=== PATIENT | female | born 1970 | race Caucasian/White ===

== ENCOUNTER 2018-10-20 16:30 | Emergency (ER) | payer SELFPAY ==
--- NOTE | 2018-10-20 16:48 | PDOC ---
Rapid Medical Evaluation Chief Complaint: Blood Transfusion Time Seen by Provider: 10/20/18 16:43 Medical Evaluation: Allergies Allergy/AdvReac Type Severity Reaction Status Date / Time No Known Allergies Allergy Verified 10/20/18 16:42 10/20/18 16:46 The patient presents with a chief complaint of: dizzy, weak and sob w/ exertion , hx anemia due to heavy menstruation, went to pcp and was told her hgb was low and to go to the ED I have performed a brief in-person evaluation of this patient Pertinent physical exam findings: ambulatory, in no respiratory distress, vss I have ordered the following: labs, iv The patient will proceed to the ED for further evaluation. Discharge Disposition - Diagnosis Anemia - Discharge Dispostion Disposition: HOME Condition at time of disposition: Good - Referrals Referrals: Ramila Escudero MD [Primary Care Provider] - - Patient Instructions Printed Discharge Instructions: Anemia Additional Instructions: Please return if you have any new, worsening or concerning symptoms, especially fever, shortness of breath, and increased bleeding. Please follow up with your primary care doctor regarding your vaginal bleeding. - Post Discharge Activity
[2018-10-20 16:49] VITALS: BMI 27.6
[2018-10-20 17:10] LABS: BASO % 0.5 % (0-2.0); EOS % 1.9 % (0-4.5); HEMATOCRIT 21.1 % (32.4-45.2); LYMPH % 27.4 % (8-40); MCH 28.8 pg (25.7-33.7); MCHC 32.7 g/dl (32.0-36.0); MEAN CELL VOLUME 87.9 fl (80-96); MEAN PLT VOLUME 7.4 fl (7.5-11.1); MONO % 6.5 % (3.8-10.2); NEUT % 63.7 % (42.8-82.8); PLATELET COUNT 371 K/MM3 (134-434); RBC 2.41 M/mm3 (3.60-5.2); RDW 15.3 % (11.6-15.6); WHITE BLOOD COUNT 8.3 K/mm3 (4.0-10.0)
[2018-10-20 17:14] LABS: HEMOGLOBIN 6.9 GM/dL (10.7-15.3)
[2018-10-20 17:14] LABS: URINE BILIRUBIN NEGATIVE (<2.0 mg/dL); URINE GLUCOSE (UA) NEGATIVE (NEGATIVE); URINE KETONE NEGATIVE (NEGATIVE); URINE LEUK ESTERASE NEGATIVE (NEGATIVE); URINE NITRITE NEGATIVE (NEGATIVE); URINE PROTEIN NEGATIVE (NEGATIVE); URINE UROBILINOGEN NEGATIVE mg/dL (0.2-1.0)
[2018-10-20 17:15] LABS: URINE APPEARANCE CLEAR; URINE COLOR YELLOW
[2018-10-20 17:16] LABS: HCG,QUALITATIVE URINE Negative
[2018-10-20 17:55] LABS: ALBUMIN 3.4 g/dl (3.4-5.0); ALK PHOS 70 U/L (45-117); ANION GAP 6 MMOL/L (8-16); BILIRUBIN,TOTAL < 0.1 mg/dL (0.2-1); BLOOD UREA NITROGEN 19 mg/dL (7-18); CALCIUM 7.9 mg/dL (8.5-10.1); CHLORIDE 106 mmol/L (98-107); CO2 25 mmol/L (21-32); CREATININE 0.7 mg/dL (0.55-1.3); GLUCOSE,RANDOM 99 mg/dL (74-106); POTASSIUM 3.9 mmol/L (3.5-5.1); SGOT/AST 5 U/L (15-37); SGPT/ALT 34 U/L (13-61); SODIUM 136 mmol/L (136-145); TOT PROT 8.2 g/dl (6.4-8.2)
--- NOTE | 2018-10-20 18:25 | PDOC ---
Attending Attestation - [facility] HPI: 10/20/18 19:11 The patient is a 48 year old female with a PMH of anemia who presents to the ER with weakness, shortness of breath, mild chest pain, and mild suprpubic pain over the past week. The patient states she went to her primary care doctor to be evaluated for these symptoms and was told her the blood count was low. Patient was told to come to the ER for a possible transfusion. Patient also recently went to [facility] and was given meclizine and furosemide for dizziness and lightheadedness. Patient reports her last two menstrual cycles were heavy, which is abnormal for her. Patient states she has been using multiple pads a day and her cycle stopped two days ago. Patient denies any vaginal discharge, nausea, vomiting, fever, chills, diarrhea or constipation. Allergies: NKA Past surgical history: None reported. Social history: No reported alcohol, drug or cigarette use. - Physicial Exam PE: 10/20/18 19:11 ADULT PHYSICAL EXAM Constitutional: (+) Pale appearing. Awake, alert, oriented. No acute distress. Head: Normocephalic. Atraumatic Eyes: PERRL. EOMI. (+) Pale conjunctiva. ENT: Mucous membranes are moist and intact. Posterior pharynx without exudates or erythema. Uvula midline. Neck: Supple. Full ROM. No lymphadenopathy. Cardiovascular: Regular rate. Regular rhythm. S1, S2 regular. Distal pulses are 2+ and symmetric. Pulmonary/Chest: No evidence of respiratory distress. Clear to auscultation bilaterally No wheezing, rales or rhonchi. Abdominal: (+) Mild lower pelvic tenderness. Soft and non-distended. No rebound , guarding or rigidity. No organomegaly. No palpable masses. Good bowel sounds. Back: No CVA tenderness. Musculoskeletal: No edema. No cyanosis. No clubbing. Full range of motion in all extremities. Nocalf tenderness. Radial/pedal pulses are intact and 2+ bilaterally Skin: Skin is warm and dry. No petechiae. No purpura. Neurological: Alert and oriented to person, place, and time. Cranial nerves II -XII are grossly intact. Normal speech. Strength is grossly symmetric. No sensory deficits. Psychiatric: Good eye contact. Normal interaction, affect and behavior. <Lidya Culver - Last Filed: 10/20/18 19:21> - Resident Resident Name: Joe Aparicio - ED Attending Attestation I have performed the following: I have examined & evaluated the patient, The case was reviewed & discussed with the resident, I agree w/resident's findings & plan, Exceptions are as noted - Medical Decision Making 10/20/18 18:25 I, Dr. Esperanza Salmon, DO, attest that this document has been prepared under my direction and personally reviewed by me in its entirety. I further attest, that it accurately reflects all work, treatment, procedures and medical decision -making performed by me. 10/20/18 19:24 a/p: 48yo female with outpt labs that show anemia -pt with lightheaded, sob with exertion- signs of anemia -pt denies falls -states castellanos since last wednesday - started on meclizine and fioricet for the castellanos from [facility] -states heavy vaginal bleeding - given meds by her doc and vaginal bleeding stopped wednesday -no bleeding today -will repeat labs, type and screen -will obtain pelvic ultrasound to eval for heavy vaginal bleeding -will monitor and reassess 10/20/18 19:26 hgb 6.9 will transfuse 1unit pRBC 10/21/18 00:53 pt feeling much better no longer lightheaded or sob 10/21/18 01:25 repeat h/h 8.2 stable for dc to home <Esperanza Salmon - Last Filed: 10/21/18 01:25> *DC/Admit/Observation/Transfer <Lidya Culver - Last Filed: 10/20/18 19:21> - Discharge Dispostion Decision to Admit order: No <Esperanza Salmon - Last Filed: 10/21/18 01:25> Diagnosis at time of Disposition: Anemia - Discharge Dispostion Disposition: HOME Condition at time of disposition: Good Heart Score/ECG Review - ECG Intrepretation Comment:: 10/20/18 20:07 sinus at 79, nl axis,nl interval, no acute st/t wave findings <Esperanza Salmon - Last Filed: 10/21/18 01:25>
--- NOTE | 2018-10-20 18:46 | PDOC ---
History of Present Illness - General Chief Complaint: Blood Transfusion Stated Complaint: Blood Transfusion Time Seen by Provider: 10/20/18 16:43 History Source: Patient Exam Limitations: Language Barrier ([place] japanese speaker used) - History of Present Illness Initial Comments: 10/20/18 18:40 Patient is 48F with history of anemia here today complaining of lab variance. Patient states that her PCP did blood tests because she complained of feeling weak, short of breath and chest pain. She received a call telling her to go to the hospital to get a blood transfusion. Patient states that for her last two cycles, she has had large amounts of bleeding during her menstrual cycle. Bleeding stopped two days ago. Denies fevers, chills, nausea, vomiting. Symptoms are exacerbated by exertion. Past History - Past Medical History Allergies/Adverse Reactions: Allergies Allergy/AdvReac Type Severity Reaction Status Date / Time No Known Allergies Allergy Verified 10/20/18 16:42 Home Medications: Ambulatory Orders Acetaminophen/Caffeine/Butalb [Fioricet -] 1 tab PO Q4H PRN 10/20/18 Meclizine HCl [Antivert -] 25 mg PO DAILY 10/20/18 Norethindrone Acetate [Norethindrone AC ([place])] 5 mg PO ASDIR 10/20/18 COPD: No Other medical history: heavy menstruation - Suicide/Smoking/Psychosocial Hx Smoking History: Never smoked Review of Systems - Review of Systems Able to Perform ROS?: Yes Comments:: 10/20/18 18:43 GENERAL/CONSTITUTIONAL: No fever or chills. +weakness. HEAD, EYES, EARS, NOSE AND THROAT: No change in vision. No sore throat. CARDIOVASCULAR: +chest pain +shortness of breath RESPIRATORY: No cough, wheezing, or hemoptysis. GASTROINTESTINAL: No nausea, vomiting, diarrhea or constipation. GENITOURINARY: No dysuria, frequency, or change in urination. MUSCULOSKELETAL: No joint or muscle swelling or pain. No neck or back pain. SKIN: No rash NEUROLOGIC: No headache, vertigo, loss of consciousness, or change in strength/ sensation. ENDOCRINE: No increased thirst. No abnormal weight change HEMATOLOGIC/LYMPHATIC: +anemia, +easy bleeding, no history of blood clots. ALLERGIC/IMMUNOLOGIC: No hives or skin allergy. *Physical Exam - Vital Signs Last Vital Signs Temp Pulse Resp BP Pulse Ox 98.5 F 88 18 112/64 100 10/20/18 16:44 10/20/18 16:44 10/20/18 16:44 10/20/18 16:44 10/20/18 16:44 - Physical Exam Comments: 10/20/18 18:46 GENERAL: Awake, alert, and fully oriented, in no acute distress HEAD: No signs of trauma, normocephalic, atraumatic EYES: PERRLA, EOMI, sclera anicteric, conjunctiva clear ENT: Auricles normal inspection, hearing grossly normal, nares patent, oropharynx clear without exudates. Moist mucosa NECK: Normal ROM, supple, no lymphadenopathy, JVD, or masses LUNGS: No distress, speaks full sentences, clear to auscultation bilaterally HEART: Regular rate and rhythm, normal S1 and S2, no murmurs, rubs or gallops, peripheral pulses normal and equal bilaterally. ABDOMEN: Soft, mild suprapubic tenderness, normoactive bowel sounds. No guarding, no rebound. No masses EXTREMITIES: Normal inspection, Normal range of motion, no edema. No clubbing or cyanosis. NEUROLOGICAL: Cranial nerves II through XII grossly intact. Normal speech, normal gait, no focal sensorimotor deficits SKIN: Warm, Dry, normal turgor, no rashes or lesions noted. Moderate Sedation - Procedure Monitoring Vital Signs: Procedure Monitoring Vital Signs Temperature 98.5 F 10/20/18 16:44 Pulse Rate 88 10/20/18 16:44 Respiratory Rate 18 10/20/18 16:44 Blood Pressure 112/64 10/20/18 16:44 O2 Sat by Pulse Oximetry (%) 100 10/20/18 16:44 ED Treatment Course - LABORATORY CBC & Chemistry Diagram: 10/21/18 01:08 10/20/18 16:58 - ADDITIONAL ORDERS Additional order review: Laboratory Results 10/20/18 10/20/18 10/20/18 18:11 17:01 16:58 Sodium 136 Potassium 3.9 Chloride 106 Carbon Dioxide 25 Anion Gap 6 L BUN 19 H Creatinine 0.7 Creat Clearance w eGFR > 60 Random Glucose 99 Calcium 7.9 L Total Bilirubin < 0.1 L AST 5 L ALT 34 Alkaline Phosphatase 70 Total Protein 8.2 Albumin 3.4 Urine Color Yellow Urine Appearance Clear Urine pH 5.0 Ur Specific [place] 1.026 Urine Protein Negative Urine Glucose (UA) Negative Urine Ketones Negative Urine Blood Negative Urine Nitrite Negative Urine Bilirubin Negative Urine Urobilinogen Negative Ur Leukocyte Esterase Negative Urine HCG, Qual Negative Blood Type Antibody Screen Crossmatch See Detail 10/20/18 16:58 Sodium Potassium Chloride Carbon Dioxide Anion Gap BUN Creatinine Creat Clearance w eGFR Random Glucose Calcium Total Bilirubin AST ALT Alkaline Phosphatase Total Protein Albumin Urine Color Urine Appearance Urine pH Ur Specific [place] Urine Protein Urine Glucose (UA) Urine Ketones Urine Blood Urine Nitrite Urine Bilirubin Urine Urobilinogen Ur Leukocyte Esterase Urine HCG, Qual Blood Type O POSITIVE Antibody Screen Negative Crossmatch 10/20/18 16:58 RBC 2.41 L MCV 87.9 MCHC 32.7 RDW 15.3 MPV 7.4 L Neutrophils % 63.7 Lymphocytes % 27.4 Monocytes % 6.5 Eosinophils % 1.9 Basophils % 0.5 - RADIOLOGY Radiology Studies Ordered: Category Date Time Status CHEST X-RAY PORTABLE* [RAD] Stat Radiology 10/20/18 17:53 Ordered TRANSVAGINAL ULTRASOUND US [US] Stat Ultrasound 10/20/18 18:20 Ordered Medical Decision Making - Medical Decision Making 10/20/18 18:47 Patient is 48F here today with anemia 2/2 dysfunctional uterine bleeding. Hgb drawn in triage 6.9. Will transfuse. Will workup with basic labs, UA, tvus. No bleeding at this time, so will transfuse one unit. No vaginal pain, vaginal discharge, will not do pelvic at this time. 10/21/18 01:07 Patient feels improved. Repeat cbc drawn. 10/21/18 01:32 Hgb 8.1. Will discharge with return precautions. *DC/Admit/Observation/Transfer Diagnosis at time of Disposition: Anemia - Discharge Dispostion Disposition: HOME Condition at time of disposition: Good Decision to Admit order: No - Referrals Referrals: Ramila Escudero MD [Primary Care Provider] - - Patient Instructions Printed Discharge Instructions: Anemia Additional Instructions: Please return if you have any new, worsening or concerning symptoms, especially fever, shortness of breath, and increased bleeding. Please follow up with your primary care doctor regarding your vaginal bleeding. - Post Discharge Activity
[2018-10-20 18:58] LABS: INR 1.01 (0.83-1.09); PROTHROMBIN TIME (PATIENT) 11.9 SEC (9.7-13.0)
[2018-10-20] MEDS ORDERED: ACETAMINOPHEN 325 MG TABLET (FP) PO ONE (20:42)
[2018-10-20] MEDS ORDERED: ACETAMINOPHEN 325 MG TABLET (FP) ONE (20:46)
[2018-10-21 01:14] LABS: CORRECTED WBC 6.55 K/mm3; HEMATOCRIT 24.5 % (32.4-45.2); RBC 2.81 M/mm3 (3.60-5.2); RDW 15.2 % (11.6-15.6)
[2018-10-21 01:22] LABS: BASO % 0.5 % (0-2.0); HEMOGLOBIN 8.2 GM/dL (10.7-15.3); LYMPH % 32.3 % (8-40); MCHC 33.4 g/dl (32.0-36.0); MEAN CELL VOLUME 86.9 fl (80-96); MEAN PLT VOLUME 7.2 fl (7.5-11.1); MONO % 7.4 % (3.8-10.2); NEUT % 57.8 % (42.8-82.8); PLATELET COUNT 325 K/MM3 (134-434); WHITE BLOOD COUNT 7.2 K/mm3 (4.0-10.0)
[2018-10-21 01:45] VITALS: BP 108/57; PULSE 78; TEMP 98
--- NOTE | 2018-10-21 10:28 | EKG ---
Test Reason : Blood Pressure : / mmHG Vent. Rate : 079 BPM Atrial Rate : 079 BPM P-R Int : 174 ms QRS Dur : 078 ms QT Int : 390 ms P-R-T Axes : 055 007 036 degrees QTc Int : 447 ms NORMAL SINUS RHYTHM POSSIBLE INFERIOR INFARCT , AGE UNDETERMINED ABNORMAL ECG NO PREVIOUS ECGS AVAILABLE Confirmed by LUISA HIGH MD ([id number]) on 10/21/2018 10:28:21 AM Referred By: Confirmed By:LUISA HIGH MD
== END 2018-10-21 01:44 | disposition home or self-care (01) ==
LOC: JER 16:30 → UNDOADMOB 21:43 → JERBED 21:43 → JER 10-21 01:44
DX: D64.89 Other specified anemias (principal)
CPT/HCPCS: 36415; 36430; 71045-TC-FY; 76830-TC; 80053; 81003; 82550; 84484; 84703; 85025; 85610; 86850; 86900; 86901; 86922; 93005; 93010; 99285-25; P9038; P9058